=== PATIENT | female | born 1990 | race Caucasian/White ===

== ENCOUNTER 2018-12-07 10:13 | Inpatient (IN) | payer MEDICAID, OTHER ==
[~2018-12-07] VITALS: Ht 162.6 cm; Wt 59.1 kg
[~2018-12-07 10:13] MED LIST: GABA-529 PO; HYDR200T4 PO
[2018-12-07 11:30] LABS: ANION GAP 10 mmol/L (8-16); CALCIUM, TOTAL 9.1 mg/dL (8.8-10.5); CARBON DIOXIDE 24 mmol/L (22-29); CHLORIDE 104 mmol/L (98-107); CREATININE 0.62 mg/dL (0.60-1.30); GLOMERULAR FILTR. RATE CALC > 60 mL/min (>60); GLUCOSE,RANDOM 100 mg/dL (70-110); POTASSIUM 4.3 mmol/L (3.5-5.1); SODIUM SERUM 138 mmol/L (136-145); UREA NITROGEN, BLOOD 18 mg/dL (7-18)
[2018-12-07 11:32] LABS: EOSINOPHILS % (AUTO) 3.9 % (1.0-6.0); HEMATOCRIT 33.3 % (36-46); LYMPHOCYTES # (AUTO) 3.7 K/uL (1.0-4.8); LYMPHOCYTES % (AUTO) 45.1 % (22.0-44.0); MEAN CORPUSCULAR HEMOGLOBIN 26.6 pg (26.0-34.0); MEAN CORPUSCULAR VOLUME 81 fL (80-100); MONOCYTES # (AUTO) 0.7 K/uL (0.1-1.0); MONOCYTES % (AUTO) 8.8 % (2.0-9.0); NEUTROPHILS # (AUTO) 3.4 K/uL (1.8-7.7); NEUTROPHILS % (AUTO) 41.2 % (40.0-70.0); RED BLOOD CELL COUNT(AUTO) 4.12 MIL/uL (4.00-5.20); RED CELL DISTRIBUTION WIDTH 19.7 % (11.5-14.5)
[2018-12-07 11:36] LABS: SALICYLATE 2.2 mg/dL (2.8-20.0)
[2018-12-07 12:00] LABS: ALANINE AMINOTRANSFERASE 87 U/L (12-78); ALBUMIN 3.7 g/dL (3.4-5.0); ALKALINE PHOSPHATASE 71 U/L (46-116); ASPARTATE AMINOTRANSFERASE 47 U/L (15-37); BILIRUBIN,TOTAL 0.6 mg/dL (0.1-1.0); CREATINE KINASE, TOTAL ONLY 133 U/L (26-192); TOTAL PROTEIN, SERUM 6.8 g/dL (6.4-8.2)
[2018-12-07 12:01] LABS: ACETAMINOPHEN < 2 mcg/mL (10-30)
[2018-12-07 12:13] LABS: PLATELET COUNT (AUTO) 219 K/uL (150-450)
[2018-12-07] MEDS ORDERED: 0.9% SODIUM CHLORIDE 10 ML SYRINGE IVP PRN (13:30)
[2018-12-07] MEDS ORDERED: ACETAMINOPHEN 325 MG TABLET PO PRN ×2 (13:30→20:30)
[2018-12-07] MEDS ORDERED: ONDANSETRON HCL 4 MG/2 ML VIAL IVP PRN (13:30)
[2018-12-07] MEDS ORDERED: DiphenhydrAMINE HCL 50 MG/ML VIAL ONE (14:39)
[2018-12-07] MEDS ORDERED: HALOPERIDOL LACTATE 5 MG/ML VIAL ONE (14:39)
[2018-12-07] MEDS ORDERED: LORazepam 2 MG/ML VIAL ONE (14:39)
[2018-12-07] MEDS ORDERED: LORazepam 2 MG/ML VIAL IM ONE (14:45)
[2018-12-07] MEDS ORDERED: HALOPERIDOL LACTATE 5 MG/ML VIAL IM ONE (14:45)
[2018-12-07] MEDS ORDERED: DiphenhydrAMINE HCL 50 MG/ML VIAL IM ONE (14:45)
[2018-12-07] MEDS ORDERED: LORazepam 2 MG TABLET PO PRN (15:15)
[2018-12-07] MEDS ORDERED: HALOPERIDOL 5 MG TABLET PO PRN (15:15)
[2018-12-07] MEDS ORDERED: ZOLPIDEM TARTRATE 10 MG TABLET PO PRN (15:15)
[2018-12-07 18:05] VITALS: BP 100/60
[2018-12-07] MEDS ORDERED: INFLUENZA VIRUS VACCINE QVS 2019-20 (3YR+)/PF 60 MCG/0.5 ML SYRINGE IM ONE (18:30)
[2018-12-07] MEDS ORDERED: IBUPROFEN 400 MG TABLET PO PRN (20:30)
[2018-12-07] MEDS ORDERED: GuaiFENesin/D-METHORPHAN [SUGAR-FREE] 200-20MG/10 ML SYRUP UDCUP PO PRN (20:30)
[2018-12-07] MEDS ORDERED: ONDANSETRON HCL 4 MG TABLET PO PRN (20:30)
[2018-12-07] MEDS ORDERED: PETROLATUM,WHITE 28 GM JELLY TP PRN (20:30)
[2018-12-07] MEDS ORDERED: CloNIDine HCL 0.1 MG TABLET PO PRN (20:30)
[2018-12-07] MEDS ORDERED: NICOTINE 14 MG/24 HOUR PATCH TD PRN (20:30)
[2018-12-07] MEDS ORDERED: DOCUSATE SODIUM 100 MG CAPSULE PO PRN (20:30)
[2018-12-07] MEDS ORDERED: LOPERAMIDE HCL 2 MG CAPSULE PO PRN (20:30)
[2018-12-07] MEDS ORDERED: MAG HYDROX/AL HYDROX/SIMETH ES 30 ML SUSPENSION UDCUP PO PRN (20:30)
[2018-12-07] MEDS ORDERED: ALBUTEROL SULFATE HFA 90 MCG/PUFF 8 GM INHALER IH PRN (20:30)
[2018-12-07] MEDS ORDERED: MAGNESIUM HYDROXIDE SUSPENSION 30 ML UDCUP PO PRN (20:30)
[2018-12-08 06:30] VITALS: BP 102/63
[2018-12-08 08:08] LABS: HEMOGLOBIN A1C 5.2 % (4.5-6.2)
[2018-12-08 08:15] VITALS: BP 116/69
[2018-12-08 08:23] LABS: ALANINE AMINOTRANSFERASE 75 U/L (12-78); ALBUMIN 3.2 g/dL (3.4-5.0); ALKALINE PHOSPHATASE 67 U/L (46-116); ANION GAP 9 mmol/L (8-16); ASPARTATE AMINOTRANSFERASE 41 U/L (15-37); BILIRUBIN,TOTAL 0.8 mg/dL (0.1-1.0); CARBON DIOXIDE 25 mmol/L (22-29); CHLORIDE 107 mmol/L (98-107); CHOLESTEROL 150 mg/dL (131-200); GLOMERULAR FILTR. RATE CALC > 60 mL/min (>60); GLUCOSE,RANDOM 76 mg/dL (70-110); HDL CHOLESTEROL 50 mg/dL (40-60); LDL CHOL (CALC.) 82 mg/dL (0-130); POTASSIUM 4.2 mmol/L (3.5-5.1); SODIUM SERUM 141 mmol/L (136-145); TOTAL PROTEIN, SERUM 5.9 g/dL (6.4-8.2); TRIGLYCERIDES 92 mg/dL (15-150); UREA NITROGEN, BLOOD 13 mg/dL (7-18)
[2018-12-08] MEDS: RisperiDONE 1 MG TABLET PO SCH ×2 (12:11→17:07)
[2018-12-08 16:10] VITALS: BP 108/66
[2018-12-09 06:57] VITALS: BP 123/88
[2018-12-09] MEDS: RisperiDONE 1 MG TABLET PO SCH ×2 (08:11→16:23)
[2018-12-09 08:27] VITALS: BP 127/69
[2018-12-09 16:08] VITALS: BP 117/75
[2018-12-10 06:42] VITALS: BP 101/61
[2018-12-10 08:01] VITALS: BP 118/73
[2018-12-10] MEDS: RisperiDONE 1 MG TABLET PO SCH ×2 (08:31→16:17)
[2018-12-10 16:19] VITALS: BP 141/74
[2018-12-10] MEDS ORDERED: RISP1TAB89 PO (17:07)
[2018-12-11 06:30] VITALS: BP 121/76
[2018-12-11] MEDS: RisperiDONE 1 MG TABLET PO SCH (08:07)
[2018-12-11 08:14] VITALS: BP 107/71
[2018-12-11 08:15] VITALS: BP 107/71
== END 2018-12-11 13:15 | disposition home or self-care (01) | DRG 750 ==
LOC: EMS 10:15 → B3A 16:52
PROVIDERS: ADMIT Psychiatry & Neurology Psychiatry; ATTEND Psychiatry & Neurology Psychiatry
DX: F20.0 Paranoid schizophrenia (principal); M32.9 Systemic lupus erythematosus, unspecified; D64.9 Anemia, unspecified; F11.90 Opioid use, unspecified, uncomplicated; F17.210 Nicotine dependence, cigarettes, uncomplicated; Z28.21 Immunization not carried out because of patient refusal; F15.90 Other stimulant use, unspecified, uncomplicated; F14.90 Cocaine use, unspecified, uncomplicated; F12.90 Cannabis use, unspecified, uncomplicated; M79.7 Fibromyalgia; Z85.72 Personal history of non-Hodgkin lymphomas; R74.0 Nonspecific elevation of levels of transaminase and lactic acid dehydrogenase [LDH]
CPT/HCPCS: 83036; 96372; G0480; G0481; J1200; J1630; J2060